=== PATIENT | female | born 1950 | race Asian ===

== ENCOUNTER 2016-11-08 10:56 | Emergency (ER) | payer MEDICARE, BC ==
[~2016-11-08] VITALS: Ht 157.5 cm; Wt 61.0 kg
[~2016-11-08 10:56] MED LIST: ASPI-676 PO; ATOR10TA23 PO; MULT-42 PO
[2016-11-08 11:16] VITALS: Ht 157.5 cm; Wt 61.0 kg
[2016-11-08] MEDS ORDERED: MULTI PO (11:59)
[2016-11-08] MEDS ORDERED: SIN25100 PO (12:00)
[2016-11-08] MEDS ORDERED: CALC500T91 PO (12:01)
[2016-11-08] MEDS ORDERED: ARIP2TAB8 PO (12:01)
--- NOTE | 2016-11-08 12:43 | RADRPT ---
PROCEDURE: XR Chest. CLINICAL INDICATION: Lower extremity swelling TECHNIQUE: AP view of the chest was obtained. COMPARISON: 02/20/2015 FINDINGS: The cardiomediastinal silhouette is within normal limits. The lungs are clear. No pleural effusion or pneumothorax is identified. Visualized osseous structures are unremarkable. IMPRESSION: No evidence of active cardiopulmonary disease. .Mario Kim MD, MD Date Time Electronically viewed and signed by .Mario Kim MD, MD on 11/08/2016 12:43 .O/
--- NOTE | 2016-11-08 12:46 | RADRPT ---
PROCEDURE: XR shoulder. CLINICAL INDICATION: left shoulder pain TECHNIQUE: Three views of the left shoulder were performed. COMPARISON: None available. FINDINGS: No fracture or dislocation is identified. The osseous structures are intact. AC joint is intact. Glenohumeral joint is grossly intact, but not well assessed. Soft tissues are unremarkable. IMPRESSION: No evidence of acute osseous abnormality. RPTAT: VV .Mario Kim MD, MD Date Time Electronically viewed and signed by .Mario Kim MD, MD on 11/08/2016 12:45 .O/
[2016-11-08] MEDS ORDERED: FURO40TA PO (12:59)
[2016-11-08] MEDS ORDERED: FUROSEMIDE 20 MG TAB PO ONE (13:00)
--- NOTE | 2016-11-08 13:07 | RADRPT ---
PROCEDURE: Ultrasound of the bilateral lower extremity venous system. CLINICAL INDICATION: Bilateral leg pain and swelling, deep venous thrombosis TECHNIQUE: Gómez scale with and without compression, color doppler, spectral doppler of the venous system of the bilateral lower extremities was performed. Venous augmentation maneuvers were utilized . COMPARISON: No prior studies are available for comparison. FINDINGS: RIGHT: Common femoral vein: Patent. Superficial femoral vein: Patent. Popliteal vein: Patent. Calf veins: Patent. No soft tissue abnormalities are identified. LEFT: Common femoral vein: Patent. Superficial femoral vein: Patent. Popliteal vein: Patent. Calf veins: Patent. No soft tissue abnormalities are identified. IMPRESSION: No evidence of a deep vein thrombosis within the bilateral lower extremities. RPTAT: AADD .Jani Nicolas MD, Date Time Electronically viewed and signed by .Jani Nicolas MD, on 11/08/2016 13:07 .B/
[2016-11-08 14:07] VITALS: BP 161/76; PULSE 75; RESP 16
--- NOTE | 2016-11-08 14:37 | ERD ---
ER Documentation Chief Complaint Date/Time DATE: 11/08/16 TIME: 14:33 Chief Complaint SENT BY PMD TO R/O DVT , B/L LEG PAIN , LT SHOULDER PAIN HPI Patient is a 66-year-old female with high cholesterol who presents with lower extremity edema. The patient was sent by Dr. Varela. The patient was sent to rule out DVT. She is also complaining of left-sided shoulder pain after a fall last month. Dr. Varela wanted an x-ray of the shoulder as well. The patient has had 2 weeks of lower extremity swelling which has been constant. She has had no treatment as of yet. ROS All systems reviewed and are negative except as per history of present illness. Medications Home Meds Active Scripts Furosemide* (Lasix*) 40 Mg Tablet, 40 MG PO DAILY, #20 TAB Prov:HENNA DOOLEY MD 11/08/16 Reported Medications Aripiprazole* (Abilify*) 2 Mg Tablet, 4 MG PO DAILY, #30 TAB 11/08/16 Calcium Carbonate ([id number]) 500 Mg Tablet, 500 MG PO DAILY, TAB 11/08/16 Carbidopa-Levodopa* (Sinemet*) 25-100 Mg Tab, 1 TAB PO TID, TAB 11/08/16 Multivitamins* (Theragran*) 1 Tab Tab, 1 TAB PO DAILY, TAB 11/08/16 Aspirin (Lizzie Child) 81 Mg Chew, 81 MG PO DAILY 05/03/12 Atorvastatin (Lipitor) 10 Mg Tablet, 10 MG PO HS 05/03/12 Discontinued Reported Medications Multivits,Th W-Ca,Fe,Oth Min (Multi-Vitamin With Minerals) 1 Tab Tablet, 1 TAB PO 05/03/12 Allergies Allergies: Coded Allergies: Penicillins (Verified Allergy, Unknown, 11/08/16) codeine (Verified Allergy, Unknown, 11/08/16) PMhx/Soc History of Surgery: Yes (APENDECTOMY) Anesthesia Reaction: No Hx Neurological Disorder: No Hx Respiratory Disorders: No Hx Cardiac Disorders: Yes (htn, high cholesterol) Hx Miscellaneous Medical Probl: Yes (uses walker) Hx Alcohol Use: No Hx Substance Use: No Hx Tobacco Use: No FmHx Family History: diabetes Physical Exam Vitals Vital Signs Date Time Temp Pulse Resp B/P Pulse Ox O2 Delivery O2 Flow Rate FiO2 11/08/16 14:07 75 16 161/76 98 Room Air 11/08/16 11:16 97.7 72 16 135/62 98 Physical Exam Const: No acute distress Head: Atraumatic Eyes: Normal Conjunctiva ENT: Normal External Ears, Nose and Mouth. Neck: Full range of motion..~ No meningismus. Resp: Clear to auscultation bilaterally Cardio: Regular rate and rhythm, no murmurs Abd: Soft, non tender, non distended. Normal bowel sounds Skin: 2+ pitting edema bilateral lower extrema Back: No midline or flank tenderness Ext: Pain with range of motion of the left shoulder without deformity Neur: Awake and alert Psych: Normal Mood and Affect Results 24 hrs Current Medications Medications (Trade) Dose Ordered Sig/Heather Route PRN Reason Start Time Stop Time Status Last Admin Dose Admin Furosemide (Lasix) 40 mg ONCE ONCE PO 11/08/16 13:00 11/08/16 13:01 DC 11/08/16 13:09 Procedures/MDM EKG read by me: Rate/Rhythm: Regular rate and rhythm at a normal rate Intervals: Normal Impression: No evidence of ischemia or arrhythmia Chest x-ray negative per radiology. Left shoulder x-ray negative per radiology. Ultrasound of the lower extremities negative for DVT per radiology. Patient is a 66-year-old female presents with left shoulder pain and lower extremity edema bilaterally. There is no sign of CHF on her chest x-ray. EKG shows no ischemia. Ultrasound of the lower extremities does not show DVT. X- ray of the left shoulder is negative for fracture or dislocation. At this point I believe outpatient management is appropriate. I believe the patient has lower extremity edema bilaterally and may benefit from Lasix. I gave her 40 mg by mouth and will discharge her with 40 mg daily. She can follow-up with Dr. Varela within 24-48 hours. She can return sooner for any worsening symptoms. At this point I believe outpatient management is appropriate. Departure Diagnosis: Primary Impression: Edema Edema type: unspecified Qualified Code: R60.9 - Edema, unspecified type Additional Impression: Left shoulder pain Chronicity: acute Qualified Code: M25.512 - Acute pain of left shoulder Condition: Fair Patient Instructions: Peripheral Edema, Bilateral Additional Instructions: Call your primary care doctor TOMORROW for an appointment during the next 1-2 days.See the doctor sooner or return here if your condition worsens before your appointment time. HENNA DOOLEY MD Nov 08, 2016 14:36
== END 2016-11-08 14:05 | disposition home or self-care (01) ==
LOC: E/R 10:56
DX: R60.9 Edema, unspecified (principal); M25.512 Pain in left shoulder; I10 Essential (primary) hypertension; Z79.82 Long term (current) use of aspirin
CPT/HCPCS: 71010; 73030; 93005; 93923

== ENCOUNTER 2017-01-18 03:00 | Emergency (ER) | payer MEDICARE, BC ==
[~2017-01-18] VITALS: Ht 157.5 cm; Wt 61.4 kg
[~2017-01-18 03:00] MED LIST changes: +ARIP2TAB8 PO; +CALC500T91 PO; +FURO-109 PO; -MULT-42 PO; +MULTI PO; +SIN25100 PO
[2017-01-18 03:20] VITALS: Ht 157.5 cm; Wt 61.4 kg
[2017-01-18] MEDS ORDERED: IBUPROFEN 200 MG TAB PO ONE (04:30)
--- NOTE | 2017-01-18 04:55 | RADRPT ---
PROCEDURE: Left shoulder. CLINICAL INDICATION: Pain. TECHNIQUE: 2 views of the left shoulder. COMPARISON: 11/08/2016. FINDINGS: There is no fracture, dislocation or bone destruction. The joint spaces are within normal limits. Bone mineralization is within normal limits. There is no radiopaque foreign body or abnormal calcif ication. IMPRESSION: Unremarkable left shoulder. .Oz Thakur MD, Date Time Electronically viewed and signed by .Oz Thakur MD, on 01/18/2017 04:55 .T/
--- NOTE | 2017-01-18 04:57 | RADRPT ---
PROCEDURE: Right hand. CLINICAL INDICATION: Pain. TECHNIQUE: 2 views including PA and lateral views of the right hand were obtained. COMPARISON: None. FINDINGS: There is no fracture, dislocation or bone destruction. The joint spaces are within normal limits. Bone mineralization is within normal limits. There is no radiopaque foreign body or abnormal calcif ication. IMPRESSION: No evidence of fracture. .Oz Thakur MD, MD Date Time Electronically viewed and signed by .Oz Thakur MD, on 01/18/2017 04:57 .T/
--- NOTE | 2017-01-18 04:58 | RADRPT ---
PROCEDURE: Left humerus. CLINICAL INDICATION: Pain. TECHNIQUE: Two views of the left humerus. COMPARISON: None. FINDINGS: There is no fracture, dislocation or bone destruction. The joint spaces are within normal limits. Bone mineralization is within normal limits. There is no radiopaque foreign body or abnormal calcif ication. IMPRESSION: Unremarkable left humerus. .Oz Thakur MD, MD Date Time Electronically viewed and signed by .Oz Thakur MD, on 01/18/2017 04:57 .T/
--- NOTE | 2017-01-18 04:59 | RADRPT ---
PROCEDURE: Left knee. CLINICAL INDICATION: Pain. TECHNIQUE: Three views including AP, lateral and oblique views of the left knee were obtained. T he images reviewed on a PACS workstation. COMPARISON: None. FINDINGS: There is no fracture, dislocation or bone destruction. There is no significant joint space narrowin g or effusion. Bone mineralization is within normal limits. Vascular calcifications are present. T here are small osteophytes of the anterior patella. IMPRESSION: No evidence of fracture. Vascular calcifications reflective of atherosclerosis. .Oz Thakur MD, MD Date Time Electronically viewed and signed by .Oz Thakur MD, MD on 01/18/2017 04:59 .T/
--- NOTE | 2017-01-18 06:07 | RADRPT ---
PROCEDURE: XR Chest. CLINICAL INDICATION: cough TECHNIQUE: Portable single view of the chest COMPARISON: 11/08/2016 FINDINGS: Again seen are shallow lung volumes and probable top normal heart size. There is mild pulmonary vas cular congestion with perhaps slight interstitial edema, new since the prior study. No focal infilt rate or pleural effusion. Degenerative change of the spine. IMPRESSION: Low lung volumes. Perhaps mild congestive heart failure, new. RPTAT: HLBE Nika Multani Physician Date Time Electronically viewed and signed by Nika Multani, Physician on 01/18/2017 06:07 LE/
--- NOTE | 2017-01-18 07:15 | ERD ---
ER Documentation Chief Complaint Date/Time DATE: 01/18/17 TIME: 07:12 Chief Complaint LEFT KNEE/SHOULDER PAIN HPI 66-year-old female with a history of Parkinson's disease presenting after a fall. She states that she was having a coughing episode and lost her balance and fell onto her left shoulder and left knee. She denies any associated head trauma or loss of consciousness. She denies any chest pain or shortness of breath. She complains of left knee pain about 6 out of 10, left shoulder pain about 3 out of 10. She endorses a cough for about 3 days without associated symptoms. ROS All systems reviewed and are negative except as per history of present illness. Medications Home Meds Active Scripts Furosemide* (Lasix*) 40 Mg Tablet, 40 MG PO DAILY, #20 TAB Prov:HENNA DOOLEY MD 11/08/16 Reported Medications Aripiprazole* (Abilify*) 2 Mg Tablet, 4 MG PO DAILY, #30 TAB 11/08/16 Calcium Carbonate ([id number]) 500 Mg Tablet, 500 MG PO DAILY, TAB 11/08/16 Carbidopa-Levodopa* (Sinemet*) 25-100 Mg Tab, 1 TAB PO TID, TAB 11/08/16 Multivitamins* (Theragran*) 1 Tab Tab, 1 TAB PO DAILY, TAB 11/08/16 Aspirin (Lizzie Child) 81 Mg Chew, 81 MG PO DAILY 05/03/12 Atorvastatin (Lipitor) 10 Mg Tablet, 10 MG PO HS 05/03/12 Allergies Allergies: Coded Allergies: Penicillins (Verified Allergy, Unknown, 11/08/16) codeine (Verified Allergy, Unknown, 11/08/16) PMhx/Soc History of Surgery: Yes (APENDECTOMY) Anesthesia Reaction: No Hx Neurological Disorder: No Hx Respiratory Disorders: No Hx Cardiac Disorders: Yes (htn, high cholesterol) Hx Psychiatric Problems: Yes (depression, bipolar) Hx Miscellaneous Medical Probl: Yes (uses walker, [employer]) Hx Alcohol Use: No Hx Substance Use: No Hx Tobacco Use: No Smoking Status: Never smoker FmHx Family History: coronary disease Physical Exam Vitals Vital Signs Date Time Temp Pulse Resp B/P Pulse Ox O2 Delivery O2 Flow Rate FiO2 01/18/17 07:00 97.9 70 17 153/71 100 Room Air 01/18/17 06:00 97.7 77 18 159/68 99 Room Air 01/18/17 03:20 97.7 68 18 138/80 100 01/18/17 03:20 97.7 78 18 138/80 99 Room Air Physical Exam Const: [Well-appearing, no apparent distress, nontoxic Head: Atraumatic Eyes: Normal Conjunctiva, PERRLA, EOMI ENT: Normal External Ears, Nose and Mouth. Neck: Full range of motion..~ No meningismus. Resp: Clear to auscultation bilaterally Cardio: Regular rate and rhythm, no murmurs Abd: Soft, non tender, non distended. Normal bowel sounds Skin: No petechiae or rashes Back: No midline or flank tenderness Ext: No cyanosis, or edema. Tenderness to palpation around the left shoulder joint, no deformities or swelling. 2+ radial pulses. Left knee with some tenderness to palpation of the joint, no effusion, no deformities, no joint instability. 2+ pedal pulses. Strength and sensations intact in all 4 extremities. Neur: Awake and alert Psych: Normal Mood and Affect Results 24 hrs Current Medications Medications (Trade) Dose Ordered Sig/Heather Route PRN Reason Start Time Stop Time Status Last Admin Dose Admin Ibuprofen (Motrin) 400 mg ONCE ONCE PO 01/18/17 04:30 01/18/17 04:31 DC 01/18/17 04:13 Procedures/MDM Patient is presenting after a mechanical ground-level fall. Her vitals are within normal limits. X-rays of her left shoulder, humerus, and knee were done and were normal. I did an x-ray of her chest given her cough and there does not seem to be an acute pneumothorax or pneumonia, however there is evidence of mild CHF. Patient is hemodynamically stable. I do not suspect acute coronary syndrome. She is satting well on room air. I believe she is stable for continued outpatient follow-up and workup for her CHF. I do not think she needs admission at this time. She will call her doctor today to schedule an appointment in the next 1-2 days for follow-up. Departure Diagnosis: Primary Impression: Fall from ground level Additional Impressions: Cough Contusion of knee, left Contusion of left shoulder Encounter type: initial encounter Qualified Code: S40.012A - Contusion of left shoulder, initial encounter Condition: Stable Patient Instructions: Contusions (Bruises), Contusion, Lower Extremity, Cough, Chronic, Uncertain Cause, (Adult), Finger Contusion Additional Instructions: Make an appointment with your primary care physician in 1-2 days. Return for any worsening symptoms. Take Advil as needed for your pain. MAG LEZAMA MD Jan 18, 2017 07:15
[2017-01-18 08:52] VITALS: BP 149/88; PULSE 88; RESP 16; TEMP 98.6
== END 2017-01-18 08:53 | disposition home or self-care (01) ==
LOC: E/R 03:00
DX: S80.02XA Contusion of left knee, initial encounter (principal); S40.012A Contusion of left shoulder, initial encounter; R05 Cough; I10 Essential (primary) hypertension; G20 Parkinson's disease; W18.39XA Other fall on same level, initial encounter; Y92.9 Unspecified place or not applicable; Z79.82 Long term (current) use of aspirin
CPT/HCPCS: 71010; 73030; 73060; 73120; 73562